=== PATIENT | female | born 1990 | race African-American/Black ===

== ENCOUNTER 2018-05-02 15:55 | Emergency (ER) | payer MEDICAID ==
[~2018-05-02] VITALS: Ht 167.6 cm; Wt 61.2 kg
[2018-05-02 16:03] VITALS: BP 117/70
--- NOTE | 2018-05-02 17:03 | Emergency Room Report ---
History of Present Illness General Chief Complaint: Upper Respiratory Illness Source: Patient (Harjit Cedeño) Present Illness HPI 27-year-old female patient presents to ER complaining of cough for the past 3 weeks. Reports was previously seen by another physician and given codeine cough medication for treatment of symptoms. Reports that symptoms almost completely resolved 2 weeks ago for a few days and then returns. Reports cough worse at night. Reports no hemoptysis. Reports cough or sputum. Reports up to date on vaccinations. Denies night sweats. Reports headache fever several days ago but has since resolved. Reports taking Tylenol. Denies other acute symptoms. Denies history of asthma. Denies chest pain, shortness breath, abdominal pain, dysuria. (Harjit Cedeño) Allergies: Coded Allergies: No Known Allergies (Unverified , 05/02/18) Patient History Past Medical History: see triage record Last Menstrual Period: 1 week Now: No Reviewed Nursing Documentation: PMH: Agreed; PSxH: Agreed (Harjit Cedeño) Nursing Documentation-PMH Past Medical History: No Stated History (Harjit Cedeño) Review of Systems All Other Systems: negative except mentioned in HPI (Harjit Cedeño) Physical Exam Vital Signs Date Time Temp Pulse Resp B/P (MAP) Pulse Ox O2 Delivery O2 Flow Rate FiO2 05/02/18 16:03 98.1 90 18 117/70 96 Room Air 98.1 Sp02 EP Interpretation: reviewed, normal General Appearance: well appearing, no apparent distress, alert, GCS 15, non- toxic Head: normocephalic, atraumatic Eyes: bilateral eye normal inspection, bilateral eye PERRL ENT: hearing grossly normal, normal pharynx, no angioedema, normal voice, uvula midline, moist mucus membranes Neck: full range of motion Respiratory: lungs clear, normal breath sounds, no rhonchi, no respiratory distress, no accessory muscle use, no wheezing, speaking full sentences Cardiovascular #1: regular rate, rhythm, no edema Musculoskeletal: back normal, digits/nails normal, gait/station normal, normal range of motion, non-tender Neurologic: alert, oriented x3, responsive, motor strength/tone normal, sensory intact Psychiatric: mood/affect normal Skin: no rash Lymphatic: no adenopathy (Gala,Harjit P.A.) Medical Decision Making PA Attestation Dr. Blair is my supervising Physician whom patient management has been discussed with. (Harjit Cedeño.Vikram) Diagnostic Impression: Primary Impression: Bronchitis ER Course Pt presents to ED c/o cough. DDX considered but are not limited to influenza, viral URI, pneumonia, strep throat, rhinitis, sinusitis, otitis media. Due to hx of cough for three weeks and reported fever earlier in week, will order x-ray to rule out pneumonia. VITAL SIGNS are WNL, patient is afebrile Ordered CXR. ER COURSE: Lungs clear to auscultation, no wheezes, rhonci or rales. CXR negative for acute disease. Likely viral etiology of symptoms. Symptomatic treatment. Followup with PCP for further treatment and/or referral as needed. Discuss referral to [facility]. Instructed patient to take Tylenol for pain and fever symptoms. DISCHARGE: -Rx given for Tylenol/Acetaminophen -Rx given for Dextromethorphan cough medication -Rx given for Albuterol MDI At this time pt is stable for d/c to home. Patient is resting comfortably, in no acute distress, nontoxic appearing. Patient to take medications as instructed Will provide with patient care instructions and any necessary prescriptions. Care plan and follow-up instructions provided. Patient instructed to follow-up with primary care provider in 3 - 5 days. Patient questions asked and answered. Patient reports understanding and agreement to treatment plan. ER precautions given. Patient instructed to return to ER immediately for any new or worsening of symptoms including but not limited to increasing SOB, persistent fever, intractable vomiting. - Please note that this Emergency Department Report was dictated using [employer]machine made shoe unit worker technology software, occasionally this can lead to erroneous entry secondary to interpretation by the dictation equipment. (Harjit Cedeño P.A.) Chest X-Ray Diagnostic Results Chest X-Ray Diagnostic Results : Chest X-Ray Ordered: Yes # of Views/Limited/Complete: 1 View Indication: Chest Pain EP Interpretation: Yes PA Xray: Interpretation reviewed, by supervising MD, and agrees with findings. Interpretation: no consolidation, no effusion, no pneumothorax Impression: No acute disease PA Scribe Text Olman BLACKWELL-Alysa (Harjit Cedeño P.A.) Chest X-Ray Diagnostic Results : Electronically Signed by: Scribe documentation reviewed by me and is accurate, David Blair MD. (David Blair M.D.) Last Vital Signs Date Time Temp Pulse Resp B/P (MAP) Pulse Ox O2 Delivery O2 Flow Rate FiO2 05/02/18 16:03 98.1 90 18 117/70 96 Room Air 98.1 (Harjit Cedeño) Disposition: HOME, SELF-CARE Condition: Stable Scripts Albuterol Sulfate* (ALBUTEROL SULFATE MDI*) 8.5 Gm Hfa.aer.ad 2 PUFF INH Q6H, #1 INH 0 Refills Prov: Harjit Cedeño 05/02/18 Dextromethorphan Hbr (TUSSIN COUGH) 15 Mg/5 Ml Syrup 15 MG PO DAILY, #118 ML Prov: Harjit Cedeño 05/02/18 Acetaminophen* (TYLENOL EXTRA STRENGTH*) 500 Mg Tablet 500 MG ORAL Q8H PRN for Prn Headache/Temp > 101, #30 TAB 0 Refills Prov: Harjit Cedeño 05/02/18 Patient Instructions: Acute Bronchitis, [id number] Additional Instructions: Followup with primary care provider in 3 -5 days. Take medications as directed. Patient questions asked and answered. ER precautions given, patient instructed to return to ER immediately for any new or worsening of symptoms. Harjit Cedeño May 02, 2018 17:03 David Blair M.D. May 04, 2018 01:42
[2018-05-02] MEDS ORDERED: ALBUTEROL SULF8.5 GM INH (17:51)
[2018-05-02] MEDS ORDERED: TUSSIN COU15 MG/5 ML PO (17:51)
[2018-05-02] MEDS ORDERED: TYLENOL EXTRA500 MG ORAL (17:51)
[2018-05-02 18:03] VITALS: BP 117/70
--- NOTE | 2018-05-03 10:53 | Diagnostic Imaging Report ---
Indication: Chest pain Technique: One view of the chest Comparison: none Findings: Lungs and pleural spaces are clear. Heart size is upper limits normal Impression: No acute process
== END 2018-05-02 19:00 | disposition home or self-care (01) ==
LOC: EMR 16:40
DX: J40 Bronchitis, not specified as acute or chronic (principal)
CPT/HCPCS: 71045; 99284